=== PATIENT | male | born 1960 | race Caucasian/White ===

== ENCOUNTER 2016-10-07 08:52 | Outpatient (CLI) | payer BC | END 2016-10-07 23:59 | disposition home or self-care (01) | LOC: CT 08:52 | PROVIDERS: ATTEND Family Medicine | DX: R05 Cough (principal); Z87.891 Personal history of nicotine dependence | CPT/HCPCS: 71250-TC ==

== ENCOUNTER 2016-11-05 13:33 | Outpatient (CLI) | payer BC ==
[2016-11-05 14:28] LABS: BASOPHILS % (AUTO) 0.6 % (0.0-2.0); EOSINOPHILS % (AUTO) 0.6 % (0.0-6.0); HEMATOCRIT 41 % (39-51); HEMOGLOBIN 13.4 g/dL (13.5-17.5); LYMPHOCYTES # (AUTO) 2.7 /CMM (0.8-4.8); MEAN CORPUSCULAR HEMOGLOBIN 29 PG (26.0-33.0); MEAN CORPUSCULAR HGB CONC 33 g/dl (31.0-36.0); MEAN CORPUSCULAR VOLUME 88 fL (80-96); MONOCYTES # (AUTO) 0.6 /CMM (0.1-1.30); MONOCYTES % (AUTO) 7.7 % (2.0-12.0); NEUTROPHILS # (AUTO) 4.1 /CMM (1.8-8.9); NEUTROPHILS % (AUTO) 55.1 % (43.0-81.0); PLATELET COUNT (AUTO) 395 /CMM (150-450); RDW COEFFICIENT OF VARIATION 12.7 (11.5-15.0); RED BLOOD CELL COUNT(AUTO) 4.59 MIL/uL (4.5-6.0); WHITE BLOOD COUNT (AUTO) 7.5 K/uL (4.3-11.0)
[2016-11-05 14:45] LABS: ALBUMIN 3.8 g/dL (3.4-5.0); BILIRUBIN,TOTAL 0.5 mg/dL (0.2-1.0); CALCIUM, SERUM 8.7 mg/dL (8.5-10.1); POTASSIUM 3.9 mmol/L (3.5-5.1)
[2016-11-05 15:01] LABS: FREE PSA 0.15 ng/mL (0.00-45); FREE T4 (FREE THYROXINE) 1.26 ng/dL (0.76-1.46); PROSTATE SPECIFIC ANTIGEN SCR 0.49 ng/mL (0.00-4.00); THYROID STIMULATING HORMONE 1.035 uIU/mL (0.358-3.74)
[2016-11-05 17:47] LABS: APPEARANCE,URINE CLEAR (CLEAR); BILIRUBIN,URINE NEGATIVE (NEGATIVE); BLOOD, URINE NEGATIVE Ery/uL (NEGATIVE); COLOR,URINE YELLOW (YELLOW); KETONES,URINE NEGATIVE (NEGATIVE); LEUKOCYTE ESTERASE ,URINE NEGATIVE (NEGATIVE); NITRITE, URINE NEGATIVE (NEGATIVE); PROTEIN,URINE NEGATIVE (NEGATIVE); UGLUCOSE NEGATIVE (NEGATIVE); UROBILINOGEN,URINE 0.2 EU/dL (0.2)
== END 2016-11-05 23:59 | disposition home or self-care (01) ==
LOC: LAB 13:33
PROVIDERS: ATTEND Family Medicine
DX: R03.0 Elevated blood-pressure reading, without diagnosis of hypertension (principal); E55.9 Vitamin D deficiency, unspecified
CPT/HCPCS: 36415; 80053-TC; 80061-TC; 81000-TC; 82306; 84153-TC; 84154-TC; 84439-TC; 84443-TC; 85025-TC; 87086-TC

== ENCOUNTER 2017-08-26 09:28 | Outpatient (CLI) | payer BC ==
[2017-08-26 09:55] LABS: BASOPHILS % (AUTO) 0.5 % (0.0-2.0); EOSINOPHILS # (AUTO) 0.1 /CMM (0.0-0.7); EOSINOPHILS % (AUTO) 1.2 % (0.0-6.0); HEMATOCRIT 44 % (39-51); HEMOGLOBIN 14.7 g/dL (13.5-17.5); LYMPHOCYTES # (AUTO) 2.4 /CMM (0.8-4.8); LYMPHOCYTES % (AUTO) 38.3 % (20.0-44.0); MEAN CORPUSCULAR HEMOGLOBIN 30 PG (26.0-33.0); MEAN CORPUSCULAR HGB CONC 34 g/dl (31.0-36.0); MEAN CORPUSCULAR VOLUME 91 fL (80-96); MONOCYTES # (AUTO) 0.6 /CMM (0.1-1.30); MONOCYTES % (AUTO) 8.8 % (2.0-12.0); NEUTROPHILS # (AUTO) 3.2 /CMM (1.8-8.9); NEUTROPHILS % (AUTO) 51.2 % (43.0-81.0); PLATELET COUNT (AUTO) 346 /CMM (150-450); RDW COEFFICIENT OF VARIATION 12.9 (11.5-15.0); RED BLOOD CELL COUNT(AUTO) 4.84 MIL/uL (4.5-6.0); WHITE BLOOD COUNT (AUTO) 6.3 K/uL (4.3-11.0)
[2017-08-26 10:13] LABS: ALBUMIN 3.9 g/dL (3.4-5.0); BILIRUBIN,TOTAL 0.5 mg/dL (0.2-1.0); CALCIUM, SERUM 8.8 mg/dL (8.5-10.1); CREATININE 1.1 mg/dL (0.6-1.3); POTASSIUM 4.2 mmol/L (3.5-5.1); TOTAL PROTEIN, SERUM 7.3 g/dL (6.4-8.2)
[2017-08-26 10:24] LABS: PROSTATE SPECIFIC ANTIGEN SCR 0.52 ng/mL (0.00-4.00); T4 (THYROXINE) 8.9 ug/dL (4.7-13.3); THYROID STIMULATING HORMONE 1.585 uIU/mL (0.358-3.74)
[2017-08-26 11:08] LABS: APPEARANCE,URINE CLEAR (CLEAR); BILIRUBIN,URINE NEGATIVE (NEGATIVE); BLOOD, URINE NEGATIVE Ery/uL (NEGATIVE); COLOR,URINE YELLOW (YELLOW); KETONES,URINE NEGATIVE (NEGATIVE); LEUKOCYTE ESTERASE ,URINE NEGATIVE (NEGATIVE); NITRITE, URINE NEGATIVE (NEGATIVE); PH,URINE 5.5 (5.0-8.0); PROTEIN,URINE NEGATIVE (NEGATIVE); UGLUCOSE NEGATIVE (NEGATIVE); UROBILINOGEN,URINE 0.2 EU/dL (0.2)
== END 2017-08-26 23:59 | disposition home or self-care (01) ==
LOC: LAB 09:28
PROVIDERS: ATTEND Family Medicine
DX: Z00.01 Encounter for general adult medical examination with abnormal findings (principal); Z11.59 Encounter for screening for other viral diseases; R97.20 Elevated prostate specific antigen [PSA]
CPT/HCPCS: 36415; 80053-TC; 80061-TC; 81000-TC; 84153-TC; 84436-TC; 84443-TC; 85025-TC; 86709-TC; 86803; 87086-TC

== ENCOUNTER 2017-09-30 07:26 | Outpatient (CLI) | payer BC ==
[2017-09-30] MEDS ORDERED: REGADENOSON 0.4 MG/5 ML DISP.SYRIN IVP ONE (08:00)
== END 2017-09-30 23:59 | disposition home or self-care (01) ==
LOC: NM 07:26
PROVIDERS: ATTEND Internal Medicine Interventional Cardiology
DX: I25.10 Atherosclerotic heart disease of native coronary artery without angina pectoris (principal)
CPT/HCPCS: 78452; A9502; J2785

== ENCOUNTER 2017-10-25 11:30 | Outpatient (CLI) | payer BC | END 2017-10-25 23:59 | disposition home or self-care (01) | LOC: MSC 11:30 | PROVIDERS: ATTEND Anesthesiology | DX: M51.26 Other intervertebral disc displacement, lumbar region (principal); M51.27 Other intervertebral disc displacement, lumbosacral region; M47.817 Spondylosis without myelopathy or radiculopathy, lumbosacral region; M47.816 Spondylosis without myelopathy or radiculopathy, lumbar region; M25.9 Joint disorder, unspecified; M25.572 Pain in left ankle and joints of left foot ==

== ENCOUNTER → 2017-11-16 | Day surgery (SDC) | payer BC ==
[~2017-11-16] MED LIST: BUPIVACAINE 0.25% 75 MG/30 ML VIAL IJ ONE; IOHEXOL 50 ML IV ONE; methylPREDNISolone ACETATE 80 MG/ML VIAL ONE
== END | disposition home or self-care (01) ==
LOC: DS 07:34
PROVIDERS: ATTEND Anesthesiology
DX: M54.16 Radiculopathy, lumbar region (principal); M47.816 Spondylosis without myelopathy or radiculopathy, lumbar region; M51.36 Other intervertebral disc degeneration, lumbar region; M19.072 Primary osteoarthritis, left ankle and foot
CPT/HCPCS: 20605; 62323; 72020; 73600; A6209; J1040 ×2; J3490; Q9967; Z7610 ×2

== ENCOUNTER 2018-01-01 11:02 | Emergency (ER) | payer BC ==
[~2018-01-01] VITALS: Ht 175.3 cm; Wt 79.4 kg
[2018-01-01 11:48] VITALS: BP 165/77
[2018-01-01] MEDS ORDERED: IBUPROFEN 400 MG TABLET PO ONE (12:00)
[2018-01-01] MEDS ORDERED: IBUPROFEN 400 MG TABLET ONE (12:09)
== END 2018-01-01 14:13 | disposition home or self-care (01) ==
LOC: ER 11:03
DX: S92.351A Displaced fracture of fifth metatarsal bone, right foot, initial encounter for closed fracture (principal); W18.39XA Other fall on same level, initial encounter; Y93.89 Activity, other specified; Y92.89 Other specified places as the place of occurrence of the external cause; Y99.8 Other external cause status
CPT/HCPCS: 73630-TC; A4606; Z7610

== ENCOUNTER 2018-11-16 10:36 | Outpatient (CLI) | payer BC | END 2018-11-16 23:59 | disposition home or self-care (01) | LOC: CT 10:36 | PROVIDERS: ATTEND Family Medicine | DX: J43.9 Emphysema, unspecified (principal); J98.4 Other disorders of lung; I70.0 Atherosclerosis of aorta; I25.10 Atherosclerotic heart disease of native coronary artery without angina pectoris; M47.814 Spondylosis without myelopathy or radiculopathy, thoracic region; M19.011 Primary osteoarthritis, right shoulder; M19.012 Primary osteoarthritis, left shoulder; Z87.891 Personal history of nicotine dependence | CPT/HCPCS: 71250-TC ==

== ENCOUNTER 2019-01-03 08:49 | Outpatient (CLI) | payer BC ==
[~2019-01-03] VITALS: Ht 175.3 cm; Wt 88.0 kg
[2019-01-03] MEDS ORDERED: IOHEXOL-350 100 ML VIAL IV ONE (09:31)
[2019-01-03] MEDS ORDERED: IV NS 0.9% 250 ML IV ONE (09:32)
[2019-01-03 09:39] LABS: CALCIUM, SERUM 8.5 mg/dL (8.5-10.1); CREATININE 0.9 mg/dL (0.6-1.3); POTASSIUM 4.1 mmol/L (3.5-5.1)
[2019-01-03] MEDS ORDERED: IV NS 0.9% 500 ML IV ONE (10:00)
[2019-01-03] MEDS ORDERED: METOPROLOL TARTRATE INJ 5 MG/5 ML AMPUL IVP ONE (10:00)
[2019-01-03] MEDS ORDERED: NITROGLYCERIN 0.4 MG/TAB BOTTLE ONE (10:03)
== END 2019-01-03 23:59 | disposition home or self-care (01) ==
LOC: CT 08:49
PROVIDERS: ATTEND Internal Medicine Interventional Cardiology
DX: J43.2 Centrilobular emphysema (principal); J98.11 Atelectasis; I25.10 Atherosclerotic heart disease of native coronary artery without angina pectoris; I10 Essential (primary) hypertension
CPT/HCPCS: 36415; 75574; 80048; J7050; Q9967

== ENCOUNTER 2019-04-06 09:17 | Outpatient (CLI) | payer BC | END 2019-04-06 23:59 | disposition home or self-care (01) | LOC: US 09:17 | PROVIDERS: ATTEND Family Medicine | DX: Z13.6 Encounter for screening for cardiovascular disorders (principal); M54.9 Dorsalgia, unspecified; I70.0 Atherosclerosis of aorta | CPT/HCPCS: 76770-TC ==

== ENCOUNTER 2019-08-28 11:03 | Outpatient (CLI) | payer BC | END 2019-08-28 23:59 | disposition home or self-care (01) | LOC: CT 11:03 | PROVIDERS: ATTEND Family Medicine | DX: I70.0 Atherosclerosis of aorta (principal); I25.10 Atherosclerotic heart disease of native coronary artery without angina pectoris; J43.9 Emphysema, unspecified; J98.4 Other disorders of lung; M47.814 Spondylosis without myelopathy or radiculopathy, thoracic region; M19.012 Primary osteoarthritis, left shoulder; M19.011 Primary osteoarthritis, right shoulder; K76.89 Other specified diseases of liver | CPT/HCPCS: 71250-TC ==

== ENCOUNTER 2019-09-07 08:51 | Outpatient (CLI) | payer BC ==
[2019-09-07] MEDS ORDERED: IOHEXOL-300 100 ML VIAL IV ONE ×2 (09:33→09:43)
[2019-09-07] MEDS ORDERED: CT SWABBABLE VALVE TRANS SET 1 EA INFUS.SET MC ONE ×2 (09:33→09:43)
[2019-09-07] MEDS ORDERED: IV NS 0.9% 0 ML IV ONE (09:33)
[2019-09-07] MEDS ORDERED: IV NS 0.9% 250 ML IV ONE (09:43)
== END 2019-09-07 23:59 | disposition home or self-care (01) ==
LOC: CT 08:51
PROVIDERS: ATTEND Family Medicine
DX: R16.0 Hepatomegaly, not elsewhere classified (principal); K57.30 Diverticulosis of large intestine without perforation or abscess without bleeding; K40.90 Unilateral inguinal hernia, without obstruction or gangrene, not specified as recurrent; I70.0 Atherosclerosis of aorta; M46.06 Spinal enthesopathy, lumbar region
CPT/HCPCS: 74178; J7050; Q9967

== ENCOUNTER 2020-01-01 14:21 | Emergency (ER) | payer BC ==
[~2020-01-01] VITALS: Ht 172.7 cm; Wt 81.6 kg
--- NOTE | 2020-01-01 14:39 | NUR ---
BIBS TO ER BED 7. AAOX4. NOT IN RESP DISTRESS. AMBULATORY. CAME IN FOR EPIGASTRIC PAIN FOPR THE PAST 3 DAYS. PER PT, PAIN IS NOT CURRENTLY PRESENT DURING THE ASSESSMENT. HOWEVER, WHEN THE PAIN IS PRESENT, PT DECRIBES IT BURNING AND FEELS LIKE HEARTBURN. PAIN IS INTERMITENT IN NATURE. DENIES NVD. IS AT BEDSIDE FOR EVAL. AWAITING FOR ORDERS
[2020-01-01] MEDS ORDERED: PANTOPRAZOLE 40 MG TABLET.DR PO ONE ×2 (14:59→15:00)
[2020-01-01 15:05] VITALS: BP 143/85
--- NOTE | 2020-01-01 15:05 | NUR ---
Patient discharged to home in stable condition. Written and verbal after care instructions given. Patient verbalizes understanding of instruction. Pt ambulatory with a steady gait
== END 2020-01-01 15:06 | disposition home or self-care (01) ==
LOC: ER 14:22
DX: R10.13 Epigastric pain (principal); K21.9 Gastro-esophageal reflux disease without esophagitis; E78.5 Hyperlipidemia, unspecified; I10 Essential (primary) hypertension; Z60.2 Problems related to living alone

== ENCOUNTER 2021-05-06 09:46 | Outpatient (CLI) | payer BC | END 2021-05-06 23:59 | disposition home or self-care (01) | LOC: MRI 09:46 | PROVIDERS: ATTEND Family Medicine | DX: M19.012 Primary osteoarthritis, left shoulder (principal); M75.112 Incomplete rotator cuff tear or rupture of left shoulder, not specified as traumatic; M25.412 Effusion, left shoulder; M25.712 Osteophyte, left shoulder | CPT/HCPCS: 73221-TC ==

== ENCOUNTER 2021-08-03 08:41 | Outpatient (CLI) | payer BC | END 2021-08-03 23:59 | disposition home or self-care (01) | LOC: CT 08:41 | PROVIDERS: ATTEND Legal Medicine | DX: I25.10 Atherosclerotic heart disease of native coronary artery without angina pectoris (principal); I70.0 Atherosclerosis of aorta; J98.4 Other disorders of lung; M47.814 Spondylosis without myelopathy or radiculopathy, thoracic region; Z87.891 Personal history of nicotine dependence | CPT/HCPCS: 71250-TC ==

== ENCOUNTER 2021-11-03 14:39 | Emergency (ER) | payer BC ==
[~2021-11-03] VITALS: Ht 175.3 cm; Wt 83.9 kg
--- NOTE | 2021-11-03 15:20 | NUR ---
PT CAME IN C/O WEAKNESS, LOSS OF APPETITE SINCE TUESDAY.
[2021-11-03] MEDS ORDERED: IV NS 0.9% 1,000 ML BAG IV ONE (16:00)
[2021-11-03 16:18] LABS: BASOPHILS % (AUTO) 0.4 % (0.0-2.0); EOSINOPHILS % (AUTO) 0.5 % (0.0-6.0); HEMATOCRIT 42 % (39-51); HEMOGLOBIN 14.4 g/dL (13.5-17.5); LYMPHOCYTES # (AUTO) 1.5 K/uL (0.8-4.8); LYMPHOCYTES % (AUTO) 22.2 % (20.0-44.0); MEAN CORPUSCULAR HGB CONC 34 g/dl (31.0-36.0); MEAN CORPUSCULAR VOLUME 89 fL (80-96); MONOCYTES # (AUTO) 0.9 K/uL (0.1-1.30); MONOCYTES % (AUTO) 12.9 % (2.0-12.0); NEUTROPHILS # (AUTO) 4.3 K/uL (1.8-8.9); PLATELET COUNT (AUTO) 264 K/uL (150-450); RED BLOOD CELL COUNT(AUTO) 4.75 MIL/uL (4.5-6.0); WHITE BLOOD COUNT (AUTO) 6.7 K/uL (4.3-11.0)
[2021-11-03 16:37] VITALS: BP 139/81
[2021-11-03 16:43] LABS: ALBUMIN 3.4 g/dL (3.4-5.0); BILIRUBIN,DIRECT 0.1 mg/dL (0.0-0.2); BILIRUBIN,TOTAL 0.9 mg/dL (0.2-1.0); CALCIUM, SERUM 8.5 mg/dL (8.5-10.1); POTASSIUM 3.8 mmol/L (3.5-5.1); TOTAL PROTEIN, SERUM 6.9 g/dL (6.4-8.2)
--- NOTE | 2021-11-04 20:31 | NUR ---
CALLED PT TO INFORM THAT HIS COVID PCR IS POSITIVE.
== END 2021-11-03 16:37 | disposition home or self-care (01) ==
LOC: ER 14:51
DX: U07.1 COVID-19 (principal)
CPT/HCPCS: 36415; 80048; 80076; 83690; 85025; 87426; 96360; 99283; C9803; U0003; J7030

== ENCOUNTER 2022-07-06 11:56 | Outpatient (CLI) | payer BC | END 2022-07-06 23:59 | disposition home or self-care (01) | LOC: MRI 11:56 | PROVIDERS: ATTEND Legal Medicine | DX: M47.817 Spondylosis without myelopathy or radiculopathy, lumbosacral region (principal); M48.07 Spinal stenosis, lumbosacral region; M25.78 Osteophyte, vertebrae | CPT/HCPCS: 72148-TC ==

== ENCOUNTER 2022-07-21 10:59 | Outpatient (CLI) | payer BC ==
[2022-07-21 12:10] LABS: BILIRUBIN,URINE NEGATIVE (NEGATIVE); COLOR,URINE YELLOW (YELLOW); LEUKOCYTE ESTERASE ,URINE NEGATIVE (NEGATIVE); NITRITE, URINE NEGATIVE (NEGATIVE); PH,URINE 5.5 (5.0-8.0); PROTEIN,URINE NEGATIVE (NEGATIVE); UGLUCOSE NEGATIVE (NEGATIVE); UROBILINOGEN,URINE 0.2 EU/dL (0.2)
[2022-07-21 12:12] LABS: BASOPHILS % (AUTO) 0.7 % (0.0-2.0); EOSINOPHILS % (AUTO) 2.9 % (0.0-6.0); HEMATOCRIT 43 % (39-51); HEMOGLOBIN 14.4 g/dL (13.5-17.5); LYMPHOCYTES % (AUTO) 42.8 % (20.0-44.0); MEAN CORPUSCULAR HGB CONC 34 g/dl (31.0-36.0); MEAN CORPUSCULAR VOLUME 89 fL (80-96); MONOCYTES # (AUTO) 0.5 K/uL (0.1-1.30); NEUTROPHILS % (AUTO) 42.6 % (43.0-81.0); PLATELET COUNT (AUTO) 346 K/uL (150-450); RED BLOOD CELL COUNT(AUTO) 4.83 MIL/uL (4.5-6.0); WHITE BLOOD COUNT (AUTO) 4.6 K/uL (4.3-11.0)
[2022-07-21 12:29] LABS: FREE T4 (FREE THYROXINE) 1.1 ng/dL (0.76-1.46); PROSTATE SPECIFIC ANTIGEN SCR 0.96 ng/mL (0.00-4.00); THYROID STIMULATING HORMONE 1.389 uIU/mL (0.358-3.74); URIC ACID 5.6 mg/dL (2.6-7.2)
[2022-07-21 12:52] LABS: BILIRUBIN,TOTAL 0.9 mg/dL (0.2-1.0); CALCIUM, SERUM 8.9 mg/dL (8.5-10.1); CREATININE 1.1 mg/dL (0.6-1.3); POTASSIUM 3.7 mmol/L (3.5-5.1); TOTAL PROTEIN, SERUM 7.1 g/dL (6.4-8.2)
== END 2022-07-21 23:59 | disposition home or self-care (01) ==
LOC: LAB 10:59
PROVIDERS: ATTEND Legal Medicine
DX: Z00.00 Encounter for general adult medical examination without abnormal findings (principal); E11.9 Type 2 diabetes mellitus without complications; R53.1 Weakness; R10.9 Unspecified abdominal pain; D64.9 Anemia, unspecified; E03.9 Hypothyroidism, unspecified; N40.0 Benign prostatic hyperplasia without lower urinary tract symptoms
CPT/HCPCS: 36415; 80053-TC; 82306; 82607-TC; 83540-TC; 84153-TC; 84402; 84402-TC; 84403; 84439-TC; 84443-TC; 84550-TC; 85025-TC; 87086-TC

== ENCOUNTER 2022-07-22 08:43 | Outpatient (CLI) | payer BC ==
[2022-07-22] MEDS ORDERED: CT SWABBABLE VALVE TRANS SET 1 EA INFUS.SET MC ONE (09:45)
[2022-07-22] MEDS ORDERED: IV NS 0.9% 250 ML IV ONE (09:45)
[2022-07-22] MEDS ORDERED: IOHEXOL-300 100 ML VIAL IV ONE (09:45)
== END 2022-07-22 23:59 | disposition home or self-care (01) ==
LOC: CT 08:43
PROVIDERS: ATTEND Legal Medicine
DX: N20.0 Calculus of kidney (principal); M47.816 Spondylosis without myelopathy or radiculopathy, lumbar region; N28.1 Cyst of kidney, acquired; R10.9 Unspecified abdominal pain; I70.0 Atherosclerosis of aorta
CPT/HCPCS: 74178; 76770; J7050; Q9967